=== PATIENT | female | born 1990 | race American Indian/Alaskan Native ===

== ENCOUNTER 2017-09-28 17:14 | Emergency (ER) | payer SELFPAY ==
[2017-09-28 18:20] LABS: Basophils % (Auto) 0.6 % (0.0-1.8); Eosinophils # (Auto) 0.1 K/mm3 (0.0-0.4); Eosinophils % (Auto) 2.3 % (0.0-4.3); Hematocrit 40.9 % (30.3-42.9); Hemoglobin 13.7 gm/dl (10.1-14.3); Lymphocytes % (Auto) 48.3 % (13.4-35.0); Mean Corpuscular HGB Conc 34 % (30-34); Mean Corpuscular Hemoglobin 33 pg (28-32); Mean Corpuscular Volume 98 fl (79-97); Monocytes # (Auto) 0.5 K/mm3 (0.0-0.8); Monocytes % (Auto) 8.4 % (0.0-7.3); Platelet Count 193 K/mm3 (140-440); Red Blood Count 4.17 M/mm3 (3.65-5.03); Red Cell Distribution Width 13.4 % (13.2-15.2)
[2017-09-28 18:34] LABS: BUN/Creatinine Ratio 11; Blood Urea Nitrogen 8 mg/dL (7-17); Calcium 9.1 mg/dL (8.4-10.2); Hemolysis Index 10
[2017-09-28] MEDS ORDERED: BABY ASPIRIN PO ONE (19:01)
--- NOTE | 2017-09-28 19:01 | Emergency Department Report ---
Blank Doc - Documentation Documentation: Patient is 26 years old female with no significant past medical history. Patient presented to the ER complaining of left-sided chest pain started this morning preventing the patient from going home. Patient described how her pain as pressure does not radiate. Patient admitted to using cocaine recently. EKG show multiple PVCs. I order a second troponin patient will need to be evaluated in the main ED.
[2017-09-28 19:20] LABS: Bilirubin,Urine NEG (Negative); Blood,Urine LG (Negative); Color,Urine Yellow (Yellow); Mucus,Urine FEW /HPF; Urobilinogen,Urine < 2.0 mg/dL (<2.0)
[2017-09-28 19:25] LABS: Methadone Screen,Urine PRESUMPTIVE NEGATIVE; Opiate Screen,Urine PRESUMPTIVE NEGATIVE
[2017-09-28 19:43] LABS: Amphetamine Screen,Urine PRESUMPTIVE POSITIVE; Benzodiazepines Screen,Urine PRESUMPTIVE POSITIVE; Cannabinoid Screen,Urine PRESUMPTIVE POSITIVE; Cocaine Screen,Urine PRESUMPTIVE POSITIVE
--- NOTE | 2017-09-28 21:00 | Emergency Department Report ---
ED Chest Pain HPI - General Chief Complaint: Chest Pain Stated Complaint: CHEST PAIN Time Seen by Provider: 09/28/17 20:40 Source: patient Mode of arrival: Ambulatory Limitations: No Limitations - History of Present Illness Initial Comments: 26-year-old after [place] female presents to the emergency department with complaint of some midsternal to left-sided chest pain, shortness of breath and palpitations that have been going on for "weeks" but worsened since last night. Patient does admit to tobacco smoking and illicit drug use. She has been known to use cocaine and admits to recently taking ecstasy. She otherwise has a history of GERD and says that when she had her last physical examination couple years ago she was told that she had a "irregular heartbeat." She has not taken anything for her symptoms prior presentation. No recent travel or sick contacts at home. - Related Data Allergies Allergy/AdvReac Type Severity Reaction Status Date / Time No Known Allergies Allergy Unverified 09/28/17 17:39 Heart Score - HEART Score History: Slightly suspicious EKG: Non-specific Age: < 45 Risk factors: 1-2 risk factors Troponin: < normal limit HEART Score: 2 - Critical Actions Critical Actions: 0-3 pts:0.9-1.7%risk of adverse cardiac event.Candidate for discharge ED Review of Systems ROS: Stated complaint: CHEST PAIN Other details as noted in HPI Comment: All other systems reviewed and negative Constitutional: denies: chills, fever Eyes: denies: eye pain, eye discharge, vision change ENT: denies: ear pain, throat pain Respiratory: shortness of breath. denies: cough Cardiovascular: chest pain, palpitations Gastrointestinal: denies: abdominal pain, nausea, diarrhea Genitourinary: denies: urgency, dysuria, discharge Musculoskeletal: denies: back pain, joint swelling, arthralgia Skin: denies: rash, lesions Neurological: denies: headache, weakness, paresthesias ED Past Medical Hx - Past Medical History Previous Medical History?: Yes Hx GERD: Yes ('stopped taking prilosec") Hx Asthma: Yes Additional medical history: Heart murmur, Irregular heart beat - Surgical History Past Surgical History?: No - Social History Smoking Status: Current Every Day Smoker ED Physical Exam - General Limitations: No Limitations - Other Other exam information: GENERAL: The patient is well-developed well-nourished. HENT: Normocephalic. Atraumatic. Patient has moist mucous membranes. EYES: Extraocular motions are intact. Pupils equal reactive to light bilaterally. NECK: Supple. Trachea is midline. CHEST/LUNGS: Clear to auscultation. There is no respiratory distress noted. HEART/CARDIOVASCULAR: Regular. There is no tachycardia. There is no murmur. ABDOMEN: Abdomen is soft, nontender. Patient has normal bowel sounds. There is no abdominal distention. SKIN: Skin is warm and dry. NEURO: The patient is awake, alert, and oriented. The patient is cooperative. The patient has no focal neurologic deficits. The patient has normal speech. MUSCULOSKELETAL: There is no tenderness or deformity. There is no limitation range of motion. There is no evidence of acute injury. ED Course Vital Signs 09/28/17 09/28/17 09/28/17 17:39 20:46 20:59 Temperature 98.2 F 98.2 F Pulse Rate 68 71 65 Respiratory 18 13 14 Rate Blood Pressure 100/71 Blood Pressure 119/72 [Left] O2 Sat by Pulse 100 Oximetry 09/28/17 09/28/17 09/28/17 21:00 21:30 22:00 Temperature Pulse Rate 61 67 Respiratory 26 H 33 H 28 H Rate Blood Pressure 109/80 109/80 104/53 Blood Pressure [Left] O2 Sat by Pulse Oximetry VISH score - Vish Score Age > 65: (0) No Aspirin use within the Past 7 Days: (0) No 3 or more CAD Risk Factors: (0) No 2 or more Angina events in past 24 hrs: (1) Yes Known CAD with more than 50% Stenosis: (0) No Elevated Cardiac Markers: (0) No ST Deviation Greater than 0.5mm: (0) No VISH Score: 1 ED Medical Decision Making - Lab Data Result diagrams: 09/28/17 18:06 09/28/17 18:06 - EKG Data -: EKG Interpreted by Me EKG shows normal: sinus rhythm (with PVCs), axis, intervals, QRS complexes, ST- T waves Rate: normal - EKG Data When compared to previous EKG there are: previous EKG unavailable Interpretation: other (sinus rhythm with PVCs) - Radiology Data Radiology results: image reviewed interpreted by me: Chest x-ray does not show any acute process. There are no pleural effusions, obvious pneumonia and there is no pneumothorax. - Medical Decision Making Patient was here for the complaint of some chest pain or shortness of breath that has actually been going on for the past few weeks. EKG does not show any signs of ST elevation [place] or dysrhythmia. Labs of an unremarkable including negative troponins 2 and a negative d-dimer. Chest x-ray does not show any acute process. The patient's urine drug screen was positive for marijuana, cocaine, amphetamine and benzodiazepine. The patient does admit to illicit drug use over the past month. We had a long conversation regarding the use of illicit drugs and how there is no benefit and that if she continues to use or abuse these drugs that she may cause permanent damage or even . She was reevaluated multiple times over multiple hours and says she is feeling improved and is seen resting comfortably. I feel that she is safe for discharge home at this time. However she was encouraged to return to the emergency Department with any worsening of her symptoms or any acute distress and she was given a referral for cardiology for outpatient follow-up. - Differential Diagnosis KS, PE, dysrhythmia, substance abuse Critical Care Time: No Critical care attestation.: If time is entered above; I have spent that time in minutes in the direct care of this critically ill patient, excluding procedure time. ED Disposition Clinical Impression: Polysubstance abuse Chest pain Qualifiers: Chest pain type: unspecified Qualified Code(s): R07.9 - Chest pain, unspecified Disposition: DC-01 TO HOME OR SELFCARE Is pt being admited?: No Condition: Stable Instructions: Chest Pain (ED) Additional Instructions: Please stay away from any further illicit drug use. Return to the emergency Department with any worsening of your symptoms or any acute distress. I have given you a referral for a local financial assistant, Dr. Chadwick, to follow up regarding your chest pains. I also recommend that you follow-up with a primary care physician. Referrals: SUZY SCHILLING MD [Primary Care Provider] - 3-5 Days MOOK CHADWICK MD [Staff Physician] - 3-5 Days [facility] [Outside] - 3-5 Days Forms: Work/School Release Form(ED) Time of Disposition: 22:11
[2017-09-28] MEDS ORDERED: BABY ASPIRIN ONE (21:09)
[2017-09-28 22:15] VITALS: BP 104/53
--- NOTE | 2017-10-02 14:17 | XRay Report ---
FINAL REPORT PROCEDURE: XR CHEST ROUTINE 2V TECHNIQUE: PA and lateral chest radiographs were obtained. CPT 94581 HISTORY: Shortness of breath COMPARISON: No prior studies are available for comparison. FINDINGS: Heart: Normal. Mediastinum/Vessels: Normal. Lungs/Pleural space: No infiltrate, effusion, or pneumothorax. Bony thorax: No acute osseous abnormality. Other: IMPRESSION: No pulmonary infiltrates are identified.
== END 2017-09-28 22:19 | disposition home or self-care (01) ==
LOC: ED 17:14
DX: R07.89 Other chest pain (principal); F19.10 Other psychoactive substance abuse, uncomplicated; K21.9 Gastro-esophageal reflux disease without esophagitis; J45.909 Unspecified asthma, uncomplicated; F17.200 Nicotine dependence, unspecified, uncomplicated
CPT/HCPCS: 36415; 71046; 80048; 80307; 81001; 84484; 85025; 85379; 93005; 93010

== ENCOUNTER 2017-12-25 11:06 | Emergency (ER) | payer SELFPAY ==
[2017-12-25 11:32] VITALS: BP 110/66
[2017-12-25] MEDS ORDERED: ZOFRAN ODT PO ONE (13:25)
--- NOTE | 2017-12-25 13:30 | Emergency Department Report ---
ED General Adult HPI - General Chief complaint: Chest Pain Stated complaint: POSS STOMACH/HEART HURTS Time Seen by Provider: 12/25/17 13:08 Source: patient Mode of arrival: Ambulatory Limitations: No Limitations - History of Present Illness Initial comments: Patient presents to the emergency department with a complaint of nausea, vomiting, diarrhea for the last 3 days. 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 Patient states that she's vomited so much and so hard that at times she feels like her heart is skipping a beat. Patient denies any current chest pain. Patient denies abdominal pain or blood in her stool - Related Data Previous Rx's Medication Instructions Recorded Last Taken Type Ondansetron [Zofran Odt] 4 mg PO Q6HR PRN #20 tab.rapdis 12/25/17 Unknown Rx Promethazine [Phenergan TAB] 25 mg PO Q6HR PRN #20 tab 12/25/17 Unknown Rx Allergies Allergy/AdvReac Type Severity Reaction Status Date / Time No Known Allergies Allergy Unverified 09/28/17 17:39 ED Review of Systems ROS: Stated complaint: POSS STOMACH/HEART HURTS Other details as noted in HPI Constitutional: denies: chills, fever Eyes: denies: eye pain, eye discharge, vision change ENT: denies: ear pain, throat pain Respiratory: denies: cough, shortness of breath, wheezing Cardiovascular: denies: chest pain, palpitations Endocrine: no symptoms reported Gastrointestinal: nausea, vomiting, diarrhea. denies: abdominal pain Genitourinary: denies: urgency, dysuria, discharge Musculoskeletal: denies: back pain, joint swelling, arthralgia Skin: denies: rash, lesions Neurological: denies: headache, weakness, paresthesias Psychiatric: denies: anxiety, depression Hematological/Lymphatic: denies: easy bleeding, easy bruising ED Past Medical Hx - Past Medical History Hx GERD: Yes ('stopped taking prilosec") Hx Asthma: Yes Additional medical history: Heart murmur, Irregular heart beat - Social History Smoking Status: Current Every Day Smoker Substance Use Type: Marijuana - Medications Home Medications: Home Medications Medication Instructions Recorded Confirmed Last Taken Type Ondansetron [Zofran Odt] 4 mg PO Q6HR PRN #20 tab.rapdis 12/25/17 Unknown Rx Promethazine [Phenergan TAB] 25 mg PO Q6HR PRN #20 tab 12/25/17 Unknown Rx ED Physical Exam - General Limitations: No Limitations General appearance: alert, in no apparent distress - Head Head exam: Present: atraumatic, normocephalic - Eye Eye exam: Present: normal appearance - ENT ENT exam: Present: mucous membranes moist - Neck Neck exam: Present: normal inspection - Respiratory Respiratory exam: Present: normal lung sounds bilaterally. Absent: respiratory distress - Cardiovascular Cardiovascular Exam: Present: regular rate, normal rhythm. Absent: systolic murmur, diastolic murmur, rubs, gallop - GI/Abdominal GI/Abdominal exam: Present: soft, normal bowel sounds. Absent: distended, tenderness - Extremities Exam Extremities exam: Present: normal inspection - Back Exam Back exam: Present: normal inspection - Neurological Exam Neurological exam: Present: alert, oriented X3 - Psychiatric Psychiatric exam: Present: normal affect, normal mood - Skin Skin exam: Present: warm, dry, intact, normal color. Absent: rash ED Course Vital Signs 12/25/17 11:27 Temperature 99.1 F Pulse Rate 78 Respiratory 18 Rate Blood Pressure 110/66 O2 Sat by Pulse 98 Oximetry ED Medical Decision Making - EKG Data Rate: normal - EKG Data When compared to previous EKG there are: no significant change Interpretation: no acute changes, normal EKG (normal EKG besides the PVCs) - Medical Decision Making Discussed plan of care with patient Critical care attestation.: If time is entered above; I have spent that time in minutes in the direct care of this critically ill patient, excluding procedure time. ED Disposition Clinical Impression: Nausea & vomiting, Diarrhea Disposition: DC-01 TO HOME OR SELFCARE Is pt being admited?: No Does the pt Need Aspirin: No Condition: Stable Instructions: Acute Nausea and Vomiting (ED), Acute Diarrhea (ED) Additional Instructions: return if worse Prescriptions: Ondansetron [Zofran Odt] 4 mg PO Q6HR PRN #20 tab.rapdis PRN Reason: Nausea Promethazine [Phenergan TAB] 25 mg PO Q6HR PRN #20 tab PRN Reason: Nausea Referrals: PRIMARY CARE,MD [Primary Care Provider] - 3-5 Days [facility] [Outside] - 3-5 Days Time of Disposition: 13:30
== END 2017-12-25 13:43 | disposition home or self-care (01) ==
LOC: ED 11:06
DX: R11.2 Nausea with vomiting, unspecified (principal); R19.7 Diarrhea, unspecified; K21.9 Gastro-esophageal reflux disease without esophagitis; J45.909 Unspecified asthma, uncomplicated; F17.200 Nicotine dependence, unspecified, uncomplicated; F12.10 Cannabis abuse, uncomplicated
CPT/HCPCS: 93005; 93010; 99282; Q0162

== ENCOUNTER 2018-06-02 04:21 | Emergency (ER) | payer SELFPAY ==
[2018-06-02] MEDS ORDERED: NACL 0.9% 1000 ML 1,000 ML IV ONE ×2 (04:38→06:47)
[2018-06-02 05:50] LABS: Bilirubin,Urine NEG (Negative); Blood,Urine NEG (Negative); Color,Urine Yellow (Yellow); Hyaline Casts,Urine 1 /LPF; Mucus,Urine FEW /HPF; Urobilinogen,Urine < 2.0 mg/dL (<2.0)
[2018-06-02 05:52] LABS: Basophils % (Auto) 0.3 % (0.0-1.8); Eosinophils % (Auto) 0.3 % (0.0-4.3); Hematocrit 40.1 % (30.3-42.9); Hemoglobin 13.5 gm/dl (10.1-14.3); Lymphocytes % (Auto) 7.7 % (13.4-35.0); Mean Corpuscular HGB Conc 34 % (30-34); Mean Corpuscular Volume 97 fl (79-97); Monocytes % (Auto) 7.9 % (0.0-7.3); Platelet Count 166 K/mm3 (140-440); Red Blood Count 4.12 M/mm3 (3.65-5.03); Red Cell Distribution Width 13.7 % (13.2-15.2)
[2018-06-02 06:03] LABS: Alanine Aminotransferase 15 units/L (7-56); Albumin 4.8 g/dL (3.9-5); BUN/Creatinine Ratio 20; Blood Urea Nitrogen 10 mg/dL (7-17); Calcium 9.5 mg/dL (8.4-10.2); Hemolysis Index 5
--- NOTE | 2018-06-02 06:19 | Emergency Department Report ---
ED General Adult HPI - General Chief complaint: Dizziness Stated complaint: VOMITING/BODY PAIN Time Seen by Provider: 06/02/18 06:12 Source: patient Mode of arrival: Ambulatory Limitations: No Limitations - History of Present Illness Initial comments: -year-old female with a variety of symptoms which began yesterday. Complains of diffuse myalgias and arthralgias. She had a small amount of diarrhea and vomited last about 3 AM. She vomited several times during the day yesterday. She is not safely nauseated at this time. She denies abdominal pain. She was not vaccinated flu. Does not complain of any significant pain at the time of my encounter. She denies headaches sore throat chest pain. She said no apparent diplopia and urinating respiratory difficulties or neurological change. -: Gradual, hour(s) Location: upper extremity, lower extremity Radiation: non-radiation Quality: aching Consistency: intermittent Improves with: none Worsens with: none Associated Symptoms: nausea/vomiting (diarrhea) Treatments Prior to Arrival: none - Related Data Previous Rx's Medication Instructions Recorded Last Taken Type Ondansetron [Zofran Odt] 4 mg PO Q6HR PRN #20 tab.rapdis 12/25/17 Unknown Rx Promethazine [Phenergan TAB] 25 mg PO Q6HR PRN #20 tab 12/25/17 Unknown Rx cefUROXime [Ceftin] 250 mg PO Q12H #14 tablet 06/02/18 Unknown Rx Allergies Allergy/AdvReac Type Severity Reaction Status Date / Time No Known Allergies Allergy Unverified 09/28/17 17:39 ED Review of Systems ROS: Stated complaint: VOMITING/BODY PAIN Other details as noted in HPI Constitutional: denies: chills, fever Eyes: denies: eye pain, eye discharge, vision change ENT: denies: ear pain, throat pain Respiratory: denies: cough, shortness of breath, wheezing Cardiovascular: denies: chest pain, palpitations Endocrine: no symptoms reported Gastrointestinal: nausea, vomiting, diarrhea. denies: abdominal pain Genitourinary: denies: urgency, dysuria, discharge Musculoskeletal: as per HPI, arthralgia, myalgia. denies: back pain, joint swelling Skin: denies: rash, lesions Neurological: denies: headache, weakness, paresthesias Psychiatric: denies: anxiety, depression Hematological/Lymphatic: denies: easy bleeding, easy bruising ED Past Medical Hx - Past Medical History Hx GERD: Yes ('stopped taking prilosec") Hx Asthma: Yes Additional medical history: Heart murmur, Irregular heart beat - Surgical History Past Surgical History?: No - Social History Smoking Status: Current Every Day Smoker Substance Use Type: None - Medications Home Medications: Home Medications Medication Instructions Recorded Confirmed Last Taken Type Ondansetron [Zofran Odt] 4 mg PO Q6HR PRN #20 tab.rapdis 12/25/17 Unknown Rx Promethazine [Phenergan TAB] 25 mg PO Q6HR PRN #20 tab 12/25/17 Unknown Rx cefUROXime [Ceftin] 250 mg PO Q12H #14 tablet 06/02/18 Unknown Rx ED Physical Exam - General Limitations: No Limitations General appearance: alert, in no apparent distress - Head Head exam: Present: atraumatic, normocephalic - Eye Eye exam: Present: normal appearance. Absent: scleral icterus - ENT ENT exam: Present: mucous membranes moist - Neck Neck exam: Present: normal inspection. Absent: tenderness, meningismus - Respiratory Respiratory exam: Present: normal lung sounds bilaterally. Absent: respiratory distress - Cardiovascular Cardiovascular Exam: Present: regular rate, normal rhythm. Absent: systolic murmur, diastolic murmur, rubs, gallop - GI/Abdominal GI/Abdominal exam: Present: soft, normal bowel sounds. Absent: distended, tenderness, guarding, rebound, rigid - Extremities Exam Extremities exam: Present: normal inspection, full ROM, normal capillary refill. Absent: tenderness, pedal edema, joint swelling, calf tenderness - Back Exam Back exam: Present: normal inspection. Absent: CVA tenderness (R), CVA tenderness (L) - Neurological Exam Neurological exam: Present: alert, oriented X3, CN II-XII intact. Absent: motor sensory deficit - Psychiatric Psychiatric exam: Present: normal affect, normal mood - Skin Skin exam: Present: warm, dry, intact, normal color. Absent: rash ED Course Vital Signs 06/02/18 06/02/18 06/02/18 04:31 05:13 07:01 Temperature 97.6 F 97.7 F Pulse Rate 100 H 86 75 Respiratory 20 14 16 Rate Blood Pressure 146/90 116/78 Blood Pressure 133/79 [Left] O2 Sat by Pulse 99 100 100 Oximetry - Reevaluation(s) Reevaluation #1: She'll be given IV fluids and Zofran. Appears to the rear for outpatient disposition. Further evaluations pending. 06/02/18 06:56 06/02/18 06:58 Patient's urine is somewhat contaminated. However she has moderate leukoesterase and will be assumed to have a UTI. Urine culture is pending. She will be given ceftriaxone. Reevaluation #2: Patient now very emotionally labile. She tells the nurse that she has a toothache. She has a healed extraction site but no signs of any gross caries. She is now complaining of the worst headache she has ever had. Therefore she will be sent for a CT of her head. She will be medicated. I will perform a spinal tap and complete her workup. 06/02/18 08:03 Reevaluation #3: Patient resting comfortably now. CT of the head was normal. She declines spinal tap which I have recommended. She understands that her workup is incomplete and that I cannot exclude an emergency medical conditions that could be serious or life threatening. She has normal mental capacity and has refused. She will sign out AMA. 06/02/18 09:37 ED Medical Decision Making - Lab Data Result diagrams: 06/02/18 05:15 06/02/18 05:15 Laboratory Results - last 24 hr 06/02/18 06/02/18 06/02/18 04:43 05:11 05:15 WBC 13.1 H RBC 4.12 Hgb 13.5 Hct 40.1 MCV 97 MCH 33 H MCHC 34 RDW 13.7 Plt Count 166 Lymph % (Auto) 7.7 L Kane % (Auto) 7.9 H Eos % (Auto) 0.3 Baso % (Auto) 0.3 Lymph # 1.0 L Kane # 1.0 H Eos # 0.0 Baso # 0.0 Seg Neutrophils % 83.8 H Seg Neutrophils # 11.0 H Sodium Potassium Chloride Carbon Dioxide Anion Gap BUN Creatinine Estimated GFR BUN/Creatinine Ratio Glucose POC Glucose 123 H Calcium Total Bilirubin AST ALT Alkaline Phosphatase Total Protein Albumin Albumin/Globulin Ratio HCG, Qual Urine Color Yellow Urine Turbidity Slightly-cloudy Urine pH 5.0 Ur Specific [place] 1.016 Urine Protein 30 mg/dl Urine Glucose (UA) Neg Urine Ketones Tr Urine Blood Neg Urine Nitrite Neg Urine Bilirubin Neg Urine Urobilinogen < 2.0 Ur Leukocyte Esterase Mod Urine WBC (Auto) 13.0 H Urine RBC (Auto) 12.0 U Epithel Cells (Auto) 15.0 H Hyaline Casts 1 Urine Mucus Few 06/02/18 06/02/18 05:15 05:15 WBC RBC Hgb Hct MCV MCH MCHC RDW Plt Count Lymph % (Auto) Kane % (Auto) Eos % (Auto) Baso % (Auto) Lymph # Kane # Eos # Baso # Seg Neutrophils % Seg Neutrophils # Sodium 139 Potassium 4.3 Chloride 100.9 Carbon Dioxide 25 Anion Gap 17 BUN 10 Creatinine 0.5 L Estimated GFR > 60 BUN/Creatinine Ratio 20 Glucose 117 H POC Glucose Calcium 9.5 Total Bilirubin 0.50 AST 19 ALT 15 Alkaline Phosphatase 52 Total Protein 7.9 Albumin 4.8 Albumin/Globulin Ratio 1.5 HCG, Qual Negative Urine Color Urine Turbidity Urine pH Ur Specific [place] Urine Protein Urine Glucose (UA) Urine Ketones Urine Blood Urine Nitrite Urine Bilirubin Urine Urobilinogen Ur Leukocyte Esterase Urine WBC (Auto) Urine RBC (Auto) U Epithel Cells (Auto) Hyaline Casts Urine Mucus - EKG Data -: EKG Interpreted by De EKG shows normal: sinus rhythm, axis, intervals, QRS complexes, ST-T waves Rate: normal - EKG Data Interpretation: no acute changes, nonspecific ST-T wave david Critical care attestation.: If time is entered above; I have spent that time in minutes in the direct care of this critically ill patient, excluding procedure time. ED Disposition Clinical Impression: Viral illness UTI (urinary tract infection) Qualifiers: Urinary tract infection type: site unspecified Hematuria presence: without hematuria Qualified Code(s): N39.0 - Urinary tract infection, site not specified Cephalalgia Qualifiers: Headache type: unspecified Headache chronicity pattern: acute headache Intractability: not intractable Qualified Code(s): R51 - Headache Disposition: DC-07 LEFT AGAINST MED ADVICE Is pt being admited?: No Does the pt Need Aspirin: No Condition: Stable Instructions: Viral Syndrome (ED), Urinary Tract Infection in Women (ED), Acute Headache (ED) Additional Instructions: Further evaluation. Headache was recommended. You have refused a spinal tap which would be necessary to exclude such things as meningitis and subarachnoid hemorrhage which are life threatening. If you decide to have further evaluation return to the emergency department. I would recommend that you see follow-up as soon as possible. He appeared to have a urine infection. You were prescribed an antibiotic. Follow up on the urine culture in 2-3 days as well. Prescriptions: cefUROXime [Ceftin] 250 mg PO Q12H #14 tablet Referrals: YVON VAUGHAN MD [Primary Care Provider] - 24 Hours [facility] [Provider Group] - [place] Forms: AMA Form Time of Disposition: 09:43
[2018-06-02] MEDS ORDERED: ZOFRAN IV ONE (06:47)
[2018-06-02] MEDS ORDERED: ROCEPHIN/NS 1 GM/50 ML 1 GM/50 ML BAG IV ONE (06:57)
[2018-06-02] MEDS ORDERED: IBUPROFEN PO ONE (07:17)
[2018-06-02] MEDS ORDERED: DILAUDID IV ONE (08:02)
--- NOTE | 2018-06-02 08:43 | Cat Scan Report ---
FINAL REPORT EXAM: CT HEAD/BRAIN WO CON HISTORY: headache TECHNIQUE: CT of the head was performed. No intravenous contrast was administered. PRIORS: None. FINDINGS: There is no evidence of intracranial hemorrhage. There is no edema, mass effect or midline shift. There are no abnormal extra-axial fluid collections. The ventricles are appropriate for brain volume. There is no skull fracture seen. The visualized aspects of the sinuses are clear. IMPRESSION: There is no acute intracranial abnormality identified.
[2018-06-02] MEDS ORDERED: XYLOCAINE 1% 20 mL ONE (10:49)
[2018-06-02 12:01] LABS: Glucose,CSF 71 mg/dL
[2018-06-02 12:36] LABS: Red Blood Cell,CSF 0.55 /mm3 (0-0); White Blood Cell,CSF 1.1 /mm3 (1-10)
[2018-06-02 12:38] LABS: Appearance,CSF Clear
[2018-06-02] MEDS ORDERED: XYLOCAINE 1% 20 mL INFILTRATI ONE (14:58)
[2018-06-03 13:23] VITALS: BP 116/78
== END 2018-06-02 12:58 | disposition home or self-care (01) ==
LOC: ED 04:21
DX: N39.0 Urinary tract infection, site not specified (principal); B34.9 Viral infection, unspecified; K21.9 Gastro-esophageal reflux disease without esophagitis; J45.909 Unspecified asthma, uncomplicated; F17.200 Nicotine dependence, unspecified, uncomplicated
CPT/HCPCS: 36415; 70450; 80053; 81001; 82947; 82962; 84160; 84703; 85025; 86403; 86592; 87086; 87116; 89051; 93005; 93010; 96361; 96365; 96375; 99284; J0696; J1170; J2405; J7030

== ENCOUNTER 2019-05-09 22:12 | Emergency (ER) | payer SELFPAY ==
--- NOTE | 2019-05-09 23:02 | XRay Report ---
CHEST 1 VIEW, 05/09/2019 10:51 PM CLINICAL INFORMATION/INDICATION: Chest pain. Cough. COMPARISON: Chest radiograph, 09/28/2017 FINDINGS: SUPPORT DEVICES: None. HEART: The cardiac silhouette is normal in size. LUNGS/PLEURA: The lungs are well expanded and appear clear of focal airspace disease or significant p leural effusion ADDITIONAL FINDINGS: No additional acute findings. IMPRESSION: 1. No evidence of acute cardiopulmonary process. Signer Name: Madhuri Freitas MD Signed: 05/09/2019 10:58 PM Workstation Name: [id number]
--- NOTE | 2019-05-10 01:41 | Emergency Department Report ---
ED General Adult HPI - General Chief complaint: Chest Pain Stated complaint: CHEST PAIN VOMITING BODYACHES Time Seen by Provider: 05/10/19 01:33 Source: patient Mode of arrival: Ambulatory Limitations: No Limitations - History of Present Illness Initial comments: Patient is a 28-year-old female that presents emergency room with complaints of chest pain, coughing, nausea vomiting, body aches 3 days. Patient states is worsening. Patient states typical [id number] anything down. Patient states she is able to tolerate water intake. Patient states that her chest pain is worse with coughing and better with rest. Patient states her chest pain is also worse with movement and palpation. Patient states her chest pain is a 9 out of 10. Patient states that her chest pain is not radiating. Patient denies shortness of breath. Patient states that she is having normal bowel movements. Patient denies blood in her vomitus or stool. Patient states she has a history of PVCs and irregular heartbeat at times. -: Sudden Location: chest Radiation: non-radiation Severity scale (0 -10): 4 Consistency: constant Improves with: rest Worsens with: eating, movement, other Associated Symptoms: chest pain, cough, nausea/vomiting. denies: confusion, diaphoresis, headaches, loss of appetite, rash, seizure, shortness of breath, syncope, weakness Treatments Prior to Arrival: none - Related Data Previous Rx's Medication Instructions Recorded Last Taken Type Ondansetron [Zofran Odt] 4 mg PO Q6HR PRN #20 tab.rapdis 12/25/17 Unknown Rx Promethazine [Phenergan TAB] 25 mg PO Q6HR PRN #20 tab 12/25/17 Unknown Rx Butalb/Acetamin/Caff 50-325-40 1 each PO Q4H PRN #7 tablet 06/02/18 Unknown Rx [Fioricet] cefUROXime [Ceftin] 250 mg PO Q12H #14 tablet 06/02/18 Unknown Rx Ibuprofen [Motrin 800 MG tab] 800 mg PO Q8HR PRN #25 tablet 05/10/19 Unknown Rx Ondansetron [Zofran Odt] 4 mg PO Q6HR PRN #12 tab.rapdis 05/10/19 Unknown Rx Allergies Allergy/AdvReac Type Severity Reaction Status Date / Time No Known Allergies Allergy Unverified 09/28/17 17:39 ED Review of Systems ROS: Stated complaint: CHEST PAIN VOMITING BODYACHES Other details as noted in HPI Constitutional: denies: chills, fever Eyes: denies: eye pain, eye discharge, vision change ENT: denies: ear pain, throat pain Respiratory: denies: cough, shortness of breath, wheezing Cardiovascular: chest pain. denies: palpitations Endocrine: no symptoms reported Gastrointestinal: nausea, vomiting. denies: abdominal pain, diarrhea, constipation, hematemesis, melena, hematochezia Genitourinary: denies: urgency, dysuria, discharge Musculoskeletal: denies: back pain, joint swelling, arthralgia Skin: denies: rash, lesions Neurological: denies: headache, weakness, paresthesias Psychiatric: denies: anxiety, depression Hematological/Lymphatic: denies: easy bleeding, easy bruising ED Past Medical Hx - Past Medical History Previous Medical History?: Yes Hx GERD: Yes Hx Asthma: Yes Additional medical history: Heart murmur, Irregular heart beat - Surgical History Past Surgical History?: No - Social History Smoking Status: Current Every Day Smoker Substance Use Type: Marijuana - Medications Home Medications: Home Medications Medication Instructions Recorded Confirmed Last Taken Type Ondansetron [Zofran Odt] 4 mg PO Q6HR PRN #20 tab.rapdis 12/25/17 Unknown Rx Promethazine [Phenergan TAB] 25 mg PO Q6HR PRN #20 tab 12/25/17 Unknown Rx Butalb/Acetamin/Caff 50-325-40 1 each PO Q4H PRN #7 tablet 06/02/18 Unknown Rx [Fioricet] cefUROXime [Ceftin] 250 mg PO Q12H #14 tablet 06/02/18 Unknown Rx Ibuprofen [Motrin 800 MG tab] 800 mg PO Q8HR PRN #25 tablet 05/10/19 Unknown Rx Ondansetron [Zofran Odt] 4 mg PO Q6HR PRN #12 tab.rapdis 05/10/19 Unknown Rx ED Physical Exam - General Limitations: No Limitations General appearance: alert, in no apparent distress - Head Head exam: Present: atraumatic, normocephalic - Eye Eye exam: Present: normal appearance - ENT ENT exam: Present: mucous membranes moist, TM's normal bilaterally, normal external ear exam - Neck Neck exam: Present: normal inspection - Respiratory Respiratory exam: Present: normal lung sounds bilaterally, chest wall tenderness. Absent: respiratory distress, wheezes, rales - Cardiovascular Cardiovascular Exam: Present: regular rate, normal rhythm. Absent: systolic murmur, diastolic murmur, rubs, gallop - GI/Abdominal GI/Abdominal exam: Present: soft, normal bowel sounds. Absent: distended, tenderness, guarding - Rectal Rectal exam: Present: deferred - Extremities Exam Extremities exam: Present: normal inspection - Back Exam Back exam: Present: normal inspection - Neurological Exam Neurological exam: Present: alert, oriented X3 - Psychiatric Psychiatric exam: Present: normal affect, normal mood - Skin Skin exam: Present: warm, dry, intact, normal color. Absent: rash ED Course Vital Signs 05/09/19 05/10/19 22:19 02:10 Temperature 98.5 F 98.1 F Pulse Rate 85 82 Respiratory 18 16 Rate Blood Pressure 129/74 Blood Pressure 124/73 [Left] O2 Sat by Pulse 97 98 Oximetry - Reevaluation(s) Reevaluation #1: I discussed all results with patient. I discussed plan of care with patient. Patient agrees with plan of care. Patient is stable for discharge. Patient will be discharged home. Patient given discharge instructions. Patient voiced understanding of discharge instructions. 05/10/19 01:43 ED Medical Decision Making - EKG Data -: EKG Interpreted by Me EKG shows normal: sinus rhythm, axis, intervals, QRS complexes, ST-T waves Rate: normal - EKG Data Interpretation: other (PVCs noted. Patient in trigeminy. Patient has a history of PVCs. ) - Radiology Data Radiology results: report reviewed CHEST 1 VIEW, 05/09/2019 10:51 PM CLINICAL INFORMATION/INDICATION: Chest pain. Cough. COMPARISON: Chest radiograph, 09/28/2017 FINDINGS: SUPPORT DEVICES: None. HEART: The cardiac silhouette is normal in size. LUNGS/PLEURA: The lungs are well expanded and appear clear of focal airspace disease or significant pleural effusion ADDITIONAL FINDINGS: No additional acute findings. IMPRESSION: 1. No evidence of acute cardiopulmonary process. - Medical Decision Making Patient is a 28-year-old female that presents emergency room with complaints of cough, nausea vomiting, chest pain and body aches. Patient's clinical findings are consistent with upper respiratory infection and gastroenteritis. Patient given antiemetics and ibuprofen. Patient's chest pain is consistent with chest wall tenderness and pain. Patient stable for discharge. Patient discharged home. - Differential Diagnosis URI, cough, chest pain, gastroenteritis, nausea vomiting Critical care attestation.: If time is entered above; I have spent that time in minutes in the direct care of this critically ill patient, excluding procedure time. ED Disposition Clinical Impression: Cough, Chest wall pain, Gastroenteritis Chest pain Qualifiers: Chest pain type: unspecified Qualified Code(s): R07.9 - Chest pain, unspecified URI (upper respiratory infection) Qualifiers: URI type: unspecified URI Qualified Code(s): J06.9 - Acute upper respiratory infection, unspecified Nausea & vomiting Qualifiers: Vomiting type: unspecified Vomiting Intractability: non-intractable Qualified Code(s): R11.2 - Nausea with vomiting, unspecified Disposition: TO HOME OR SELFCARE Is pt being admited?: No Does the pt Need Aspirin: No Condition: Stable Instructions: Chest Pain (ED), Costochondritis (ED), Upper Respiratory Infection (ED), Gastroenteritis (ED), Acute Nausea and Vomiting (ED), Viral Syndrome (ED), Cold Symptoms (ED) Additional Instructions: Patient to follow-up with primary care in 2-3 days. Patient to eat a Luca diet. Patient to return to ER if condition worsens. Patient to rest. Patient to increase water. Patient to take meds as directed. Patient's take Tylenol or ibuprofen when necessary for pain/fever. Prescriptions: Ibuprofen [Motrin 800 MG tab] 800 mg PO Q8HR PRN #25 tablet PRN Reason: pain Ondansetron [Zofran Odt] 4 mg PO Q6HR PRN #12 tab.rapdis PRN Reason: Nausea And Vomiting Referrals: PRIMARY CARE,MD [Primary Care Provider] - 2-3 Days Forms: Work/School Release Form(ED) Time of Disposition: 01:42
[2019-05-10 02:12] VITALS: BP 124/73
== END 2019-05-10 02:10 | disposition home or self-care (01) ==
LOC: ED 22:12
DX: K52.9 Noninfective gastroenteritis and colitis, unspecified (principal); J06.9 Acute upper respiratory infection, unspecified; R07.89 Other chest pain; K21.9 Gastro-esophageal reflux disease without esophagitis; J45.909 Unspecified asthma, uncomplicated; F17.200 Nicotine dependence, unspecified, uncomplicated; F12.10 Cannabis abuse, uncomplicated; Z79.899 Other long term (current) drug therapy
CPT/HCPCS: 71045; 93005; 93010

== ENCOUNTER 2019-05-17 17:51 | Emergency (ER) | payer SELFPAY ==
[2019-05-17 18:15] VITALS: BP 110/65
[2019-05-17] MEDS ORDERED: KETOROLAC 30 MG/1 ML INJ IM ONE (22:53)
[2019-05-17] MEDS ORDERED: PENICILLIN G BENZATHINE 1.2 MILLION UNIT/2 ML INJ IM ONE (22:54)
[2019-05-17] MEDS ORDERED: dexAMETHasone 4 MG/ML VIAL IM ONE (22:55)
--- NOTE | 2019-05-17 23:01 | Emergency Department Report ---
ED ENT HPI - General Chief complaint: Sore Throat Stated complaint: FLU SYM/TONY Time Seen by Provider: 05/17/19 22:21 Source: patient Mode of arrival: Wheelchair Limitations: No Limitations - History of Present Illness Initial comments: 28-year-old -[place] female presents to the emergency room complaining of sore throat 2 days. Patient also admits to body aches chills. Patient states that she has swelling more to the right tonsil and has swelling to her neck. Patient has been utilizing heating pad. Denies any past medical history. Patient reports that she isn't having difficulty swallowing no difficulty breathing MD complaint: sore throat, difficulty swallowing Onset/Timin -: days(s) Location: throat Severity scale (0 -10): 10 Quality: stabbing, aching, constant Consistency: constant Improves with: none Worsens with: swallowing Associated Symptoms: pain with swallowing, sore throat, other (body aches) - Related Data Previous Rx's Medication Instructions Recorded Last Taken Type Ondansetron [Zofran Odt] 4 mg PO Q6HR PRN #20 tab.rapdis 12/25/17 Unknown Rx Promethazine [Phenergan TAB] 25 mg PO Q6HR PRN #20 tab 12/25/17 Unknown Rx Butalb/Acetamin/Caff 50-325-40 1 each PO Q4H PRN #7 tablet 06/02/18 Unknown Rx [Fioricet] cefUROXime [Ceftin] 250 mg PO Q12H #14 tablet 06/02/18 Unknown Rx Ibuprofen [Motrin 800 MG tab] 800 mg PO Q8HR PRN #25 tablet 05/10/19 Unknown Rx Ondansetron [Zofran Odt] 4 mg PO Q6HR PRN #12 tab.rapdis 05/10/19 Unknown Rx Amoxicillin [Trimox CAP] 500 mg PO Q8H #21 capsule 05/17/19 Unknown Rx Ibuprofen [Motrin 600 MG tab] 600 mg PO Q8H PRN #21 tablet 05/17/19 Unknown Rx Allergies Allergy/AdvReac Type Severity Reaction Status Date / Time No Known Allergies Allergy Verified 05/17/19 18:22 ED Dental HPI - General Chief complaint: Sore Throat Stated complaint: FLU SYM/TONY Time Seen by Provider: 05/17/19 22:21 Source: patient Mode of arrival: Wheelchair Limitations: No Limitations - Related Data Previous Rx's Medication Instructions Recorded Last Taken Type Ondansetron [Zofran Odt] 4 mg PO Q6HR PRN #20 tab.rapdis 12/25/17 Unknown Rx Promethazine [Phenergan TAB] 25 mg PO Q6HR PRN #20 tab 12/25/17 Unknown Rx Butalb/Acetamin/Caff 50-325-40 1 each PO Q4H PRN #7 tablet 06/02/18 Unknown Rx [Fioricet] cefUROXime [Ceftin] 250 mg PO Q12H #14 tablet 06/02/18 Unknown Rx Ibuprofen [Motrin 800 MG tab] 800 mg PO Q8HR PRN #25 tablet 05/10/19 Unknown Rx Ondansetron [Zofran Odt] 4 mg PO Q6HR PRN #12 tab.rapdis 05/10/19 Unknown Rx Amoxicillin [Trimox CAP] 500 mg PO Q8H #21 capsule 05/17/19 Unknown Rx Ibuprofen [Motrin 600 MG tab] 600 mg PO Q8H PRN #21 tablet 05/17/19 Unknown Rx Allergies Allergy/AdvReac Type Severity Reaction Status Date / Time No Known Allergies Allergy Verified 05/17/19 18:22 ED Review of Systems ROS: Stated complaint: FLU SYM/TONY Other details as noted in HPI ED Past Medical Hx - Past Medical History Previous Medical History?: Yes Hx GERD: Yes Hx Asthma: Yes Additional medical history: Heart murmur, Irregular heart beat - Surgical History Past Surgical History?: No - Social History Smoking Status: Current Every Day Smoker Substance Use Type: None - Medications Home Medications: Home Medications Medication Instructions Recorded Confirmed Last Taken Type Ondansetron [Zofran Odt] 4 mg PO Q6HR PRN #20 tab.rapdis 12/25/17 Unknown Rx Promethazine [Phenergan TAB] 25 mg PO Q6HR PRN #20 tab 12/25/17 Unknown Rx Butalb/Acetamin/Caff 50-325-40 1 each PO Q4H PRN #7 tablet 06/02/18 Unknown Rx [Fioricet] cefUROXime [Ceftin] 250 mg PO Q12H #14 tablet 06/02/18 Unknown Rx Ibuprofen [Motrin 800 MG tab] 800 mg PO Q8HR PRN #25 tablet 05/10/19 Unknown Rx Ondansetron [Zofran Odt] 4 mg PO Q6HR PRN #12 tab.rapdis 05/10/19 Unknown Rx Amoxicillin [Trimox CAP] 500 mg PO Q8H #21 capsule 05/17/19 Unknown Rx Ibuprofen [Motrin 600 MG tab] 600 mg PO Q8H PRN #21 tablet 05/17/19 Unknown Rx ED Physical Exam - General Limitations: No Limitations General appearance: alert, in no apparent distress - Head Head exam: Present: atraumatic, normocephalic - Eye Eye exam: Present: normal appearance - ENT ENT exam: Present: mucous membranes moist - Expanded ENT Exam Expanded Mouth exam: Absent: drooling, trismus, muffled voice Throat exam: Positive: tonsillar erythema, tonsillomegaly, tonsillar exudate - Neck Neck exam: Present: tenderness, full ROM, lymphadenopathy - Respiratory Respiratory exam: Present: normal lung sounds bilaterally. Absent: respiratory distress, wheezes, rales, rhonchi - Cardiovascular Cardiovascular Exam: Present: regular rate, normal rhythm. Absent: systolic murmur, diastolic murmur, rubs, gallop - Neurological Exam Neurological exam: Present: alert, oriented X3, normal gait - Psychiatric Psychiatric exam: Present: normal affect, normal mood - Skin Skin exam: Present: warm, dry, intact, normal color. Absent: rash ED Course Vital Signs 05/17/19 18:14 Temperature 98.9 F Pulse Rate 76 Respiratory 14 Rate Blood Pressure 110/65 [Left] O2 Sat by Pulse 98 Oximetry ED Medical Decision Making - Medical Decision Making 28-year-old -[place] female presents to the emergency room complaining of sore throat 2 days. Patient also admits to body aches chills. Patient states that she has swelling more to the right tonsil and has swelling to her neck. Patient has been utilizing heating pad. Denies any past medical history. Patient reports that she isn't having difficulty swallowing no difficulty breathing. Patient does have swelling and exudate worse in the right. Discussed the patient on give her Toradol injection dexamethasone injection and a penicillin shot. Also discussed the patient I will discharge her home on antibiotics as well. Did encourage patient to increase her fluid intake take Aleve or Tylenol or ibuprofen as needed for pain management. Patient verbalized understanding. Critical care attestation.: If time is entered above; I have spent that time in minutes in the direct care of this critically ill patient, excluding procedure time. ED Disposition Clinical Impression: Strep sore throat, URI (upper respiratory infection) Disposition: TO HOME OR SELFCARE Is pt being admited?: No Does the pt Need Aspirin: No Condition: Stable Instructions: Strep Throat (ED) Additional Instructions: Complete antibiotics take pain medication as needed follow-up with a primary care provider if symptoms persist or gets worse. Prescriptions: Ibuprofen [Motrin 600 MG tab] 600 mg PO Q8H PRN #21 tablet PRN Reason: Pain Amoxicillin [Trimox CAP] 500 mg PO Q8H #21 capsule Referrals: ENA MALLORY MD [Primary Care Provider] - 3-5 Days Forms: Work/School Release Form(ED)
== END 2019-05-17 23:31 | disposition home or self-care (01) ==
LOC: ED 17:51
DX: J02.0 Streptococcal pharyngitis (principal); K21.9 Gastro-esophageal reflux disease without esophagitis; J45.909 Unspecified asthma, uncomplicated; F17.200 Nicotine dependence, unspecified, uncomplicated; Z79.899 Other long term (current) drug therapy
CPT/HCPCS: 96372; 99282; J0561; J1100; J1885